=== PATIENT | female | born 1975 | race Caucasian/White ===

== ENCOUNTER 2017-10-11 21:06 | Emergency (ER) | payer BC ==
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
== END 2017-10-11 22:32 | disposition home or self-care (01) ==
LOC: JP.ED 21:06
DX: H10.11 Acute atopic conjunctivitis, right eye (principal); K21.9 Gastro-esophageal reflux disease without esophagitis; Z88.1 Allergy status to other antibiotic agents
CPT/HCPCS: 99283

== ENCOUNTER 2019-05-03 10:52 | Emergency (ER) | payer BC, OTHER ==
[2019-05-03] MEDS ORDERED: Ibuprofen 600 MG Tab PO ONE (11:28)
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
== END 2019-05-03 12:58 ==
LOC: JP.ED 10:52
DX: S00.03XA Contusion of scalp, initial encounter (principal); M54.6 Pain in thoracic spine; F32.9 Major depressive disorder, single episode, unspecified; F41.9 Anxiety disorder, unspecified; E03.9 Hypothyroidism, unspecified; Z88.6 Allergy status to analgesic agent; Z88.1 Allergy status to other antibiotic agents; Z88.5 Allergy status to narcotic agent; Z91.09 Other allergy status, other than to drugs and biological substances; Z87.891 Personal history of nicotine dependence; Z79.899 Other long term (current) drug therapy; V89.2XXA Person injured in unspecified motor-vehicle accident, traffic, initial encounter; Y92.410 Unspecified street and highway as the place of occurrence of the external cause
CPT/HCPCS: 71046; 72072; 99283; 99285; A9270

== ENCOUNTER 2019-05-11 10:37 | Emergency (ER) | payer OTHER ==
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
--- NOTE | 2019-05-11 12:36 | CRLCT ---
INDICATION: memory loss CT HEAD WITHOUT CONTRAST TECHNIQUE: Multiple axial CT images were performed through the head without intravenous contrast administration. COMPARISON: No previous studies are currently available for comparison. FINDINGS: No acute intracranial hemorrhage is identified. No extra-axial collections are evident and there is no mass effect or midline shift. Ventricles are normal in size and configuration. Brain parenchyma appears normal with unremarkable ayala-white differentiation. Osseous structures are within normal limits and no fractures are seen. Included portions of the paranasal sinuses and mastoid air cells are normally aerated. IMPRESSION: Normal non-contrast head CT. KM HOLLIDAY MD [employer] [employer] Dictated by: Amandeep Holliday MD @ 05/11/2019 12:34:13 (Electronically Signed)
== END 2019-05-11 14:12 | disposition home or self-care (01) ==
LOC: JP.ED 10:37
DX: S06.0X0A Concussion without loss of consciousness, initial encounter (principal); F32.9 Major depressive disorder, single episode, unspecified; Z88.1 Allergy status to other antibiotic agents; Z88.5 Allergy status to narcotic agent; Z88.8 Allergy status to other drugs, medicaments and biological substances; V49.9XXA Car occupant (driver) (passenger) injured in unspecified traffic accident, initial encounter; Y92.410 Unspecified street and highway as the place of occurrence of the external cause
CPT/HCPCS: 36415; 70450; 80053; 85025; 99284-25

== ENCOUNTER 2020-01-13 21:48 | Emergency (ER) | payer BC, OTHER ==
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
== END 2020-01-13 23:00 | disposition home or self-care (01) ==
LOC: JP.ED 21:48
DX: L25.9 Unspecified contact dermatitis, unspecified cause (principal); F41.9 Anxiety disorder, unspecified; E03.9 Hypothyroidism, unspecified; F32.9 Major depressive disorder, single episode, unspecified; Z88.6 Allergy status to analgesic agent; Z88.1 Allergy status to other antibiotic agents; Z88.5 Allergy status to narcotic agent; Z79.899 Other long term (current) drug therapy
CPT/HCPCS: 99283

== ENCOUNTER 2021-02-16 04:53 | Emergency (ER) | payer BC, OTHER ==
[2021-02-16] MEDS ORDERED: HYDROmorphone 0.5 MG/0.5 ML Syringe IVPUSH ONE ×2 (04:59→07:53)
[2021-02-16] MEDS ORDERED: Ketamine 500 MG/5 ML MDV ONE (04:59)
[2021-02-16] MEDS ORDERED: Ketamine 500 MG/5 ML MDV IV ONE (04:59)
[2021-02-16] MEDS ORDERED: HYDROmorphone 0.5 MG/0.5 ML Syringe ONE (05:00)
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
[2021-02-16] MEDS ORDERED: HYDROmorphone 1 MG/ML Syringe IVPUSH ONE (05:43)
[2021-02-16] MEDS ORDERED: LORazepam 2 MG/ML SDV IVPUSH ONE (05:43)
[2021-02-16] MEDS ORDERED: Propofol 200 MG/20 ML SDV ONE (06:16)
[2021-02-16] MEDS ORDERED: Lactated Ringers 1,000 ML IV ONE (07:01)
--- NOTE | 2021-02-16 09:30 | CR ---
Fluoro Up To 1Hr CLINICAL HISTORY: Reduction radial fracture FINDINGS: There are fluoroscopic spot images of both wrists performed during reduction of distal radial fractures Fluoroscopy time was 20 seconds
--- NOTE | 2021-02-16 09:32 | CR ---
Wrist Comp Min 3V Bi CLINICAL HISTORY: Fall FINDINGS: There is a comminuted impacted fracture of the distal left radius and a fracture of the ulnar styloid. There is widening of the scapholunate joint. There is ulnar abutment on the proximal carpal row. Impression: Fracture distal radius and ulna Wrist Comp 3 view right CLINICAL HISTORY: Fall FINDINGS: There is an impacted, comminuted distal right radial fracture and fracture of the ulnar styloid. There is dorsal angulation. There is ulnar abutment Impression: Fracture of the distal radius and ulnar styloid
== END 2021-02-16 08:18 ==
LOC: JP.ED 04:53
DX: S52.512A Displaced fracture of left radial styloid process, initial encounter for closed fracture (principal); S52.511A Displaced fracture of right radial styloid process, initial encounter for closed fracture; E03.9 Hypothyroidism, unspecified; Z79.899 Other long term (current) drug therapy; Z88.1 Allergy status to other antibiotic agents; Z88.5 Allergy status to narcotic agent; Z88.6 Allergy status to analgesic agent; W10.8XXA Fall (on) (from) other stairs and steps, initial encounter; Y92.002 Bathroom of unspecified non-institutional (private) residence as the place of occurrence of the external cause
CPT/HCPCS: 25605; 73110; 76000; 96374; 96375; 96376; 99285; J1170; J2060; J2704; J7120

== ENCOUNTER 2021-11-15 20:15 | Emergency (ER) | payer OTHER, BC | END 2021-11-15 22:05 | disposition home or self-care (01) | LOC: JP.ED 20:15 | DX: S60.211A Contusion of right wrist, initial encounter (principal); E03.9 Hypothyroidism, unspecified; Z79.899 Other long term (current) drug therapy; Z88.1 Allergy status to other antibiotic agents; Z88.5 Allergy status to narcotic agent; Z88.8 Allergy status to other drugs, medicaments and biological substances; W22.09XA Striking against other stationary object, initial encounter; Y99.0 Civilian activity done for income or pay | CPT/HCPCS: 73110-RT; 99281; 99283-25 ==

== ENCOUNTER 2023-09-04 15:47 | Emergency (ER) | payer BC ==
[2023-09-04 18:18] LABS: BASOPHILS ABSOLUTE AUTO 0.04 K/uL (0.00-0.10); BASOPHILS PERCENT AUTO 0.8 % (0.1-1.3); EOSINOPHILS ABSOLUTE AUTO 0.11 K/uL (0.00-0.40); EOSINOPHILS PERCENT AUTO 2.1 % (0.0-5.4); HEMATOCRIT 35.1 % (34.3-46.0); HEMOGLOBIN 11.9 g/dL (11.2-15.5); IMMATURE GRAN PERCENT AUTO 0.2 % (0.0-0.7); LYMPHOCYTES ABSOLUTE AUTO 1.92 K/uL (0.8-3.3); LYMPHOCYTES PERCENT AUTO 36.5 % (11.4-47.7); MEAN CORPUSCULAR HEMOGLOBIN 29.2 pg (31.6-35.5); MEAN CORPUSCULAR HGB CONC 33.9 g/dL (31.6-35.5); MONOCYTES ABSOLUTE AUTO 0.56 K/uL (0.20-0.90); MONOCYTES PERCENT AUTO 10.6 % (3.3-12.6); NEUTROPHILS ABSOLUTE AUTO 2.62 K/uL (1.0-7.6); NEUTROPHILS PERCENT AUTO 49.8 % (40.0-78.1); PLATELET COUNT,PLT 190 K/uL (130-375); RED BLOOD CELL COUNT 4.08 M/uL (3.77-5.24); WHITE BLOOD CELL COUNT,WBC 5.3 K/uL (3.2-11.0)
[2023-09-04 18:21] LABS: IMMATURE GRAN ABSOLUTE AUTO 0.01 K/uL (0.00-0.23)
[2023-09-04] MEDS: Sodium Chloride 0.9% 1,000 ML IV STA (18:24)
[2023-09-04] MEDS: Sodium Chloride 0.9% 10 ML Syringe FLUSH PRN (18:25)
[2023-09-04 18:42] LABS: A/G RATIO 1.2 (1.2-2.2); ALANINE AMINOTRANSFERASE,ALT 33 U/L (12-78); ALBUMIN 4.1 g/dL (3.4-5.0); ALKALINE PHOSPHATASE 72 U/L (46-116); ANION GAP 11.6 mmol/L (5.0-14.0); ASPARTATE AMNIOTRANSFERASE,AST 26 U/L (15-37); BILIRUBIN TOTAL 0.4 mg/dL (0.2-1.0); BLOOD UREA NITROGEN,BUN 18 mg/dL (7-18); CARBON DIOXIDE,CO2 28 mmol/L (21-32); CHLORIDE,CL 103 mmol/L (100-108); EST CRCL DRUG DOSING (CG) 58.76 mL/min; ESTIMATED GFR 69 mL/min (>60); GLUCOSE RANDOM 78 mg/dL (74-106); POTASSIUM,K 3.6 mmol/L (3.6-5.2); PROTEIN TOTAL,TP 7.5 g/dL (6.4-8.2); SODIUM,NA 143 mmol/L (140-148)
[2023-09-04] MEDS: Sodium Chloride 0.9% 50 ML IV SCH (18:56)
[2023-09-04] MEDS: Iopamidol 612 MG/ML 100 ML Bottle IV SCH (18:56)
[2023-09-04 19:44] LABS: APPEARANCE,URINE SLIGHTLY CLOUDY (CLEAR); BILIRUBIN,URINE NEGATIVE (NEGATIVE); COLOR,URINE YELLOW (YELLOW); GLUCOSE,URINE NEGATIVE (NEGATIVE); KETONES,URINE NEGATIVE (NEGATIVE); LEUKOCYTE ESTERASE,URINE NEGATIVE (NEGATIVE); NITRITE,URINE NEGATIVE (NEGATIVE); OCCULT BLOOD,URINE NEGATIVE (NEGATIVE); PH,URINE 8.5 (5.0-8.0); PROTEIN,URINE NEGATIVE (NEGATIVE); UROBILINOGEN,URINE 0.2 EU/dL (0.2-1.0)
[2023-09-04 19:46] LABS: AMORPHOUS SEDIMENT,URINE MODERATE; BACTERIA,URINE FEW; EPITHELIAL CELLS,URINE RARE; MUCUS,URINE RARE; RBC,URINE 0-5 (0-5); WBC,URINE 0-5 (0-5)
== END 2023-09-04 21:43 | disposition home or self-care (01) ==
LOC: JP.ED 15:47
DX: K59.04 Chronic idiopathic constipation (principal); K21.9 Gastro-esophageal reflux disease without esophagitis; E03.9 Hypothyroidism, unspecified; Z79.899 Other long term (current) drug therapy; Z88.6 Allergy status to analgesic agent; Z88.1 Allergy status to other antibiotic agents; Z88.8 Allergy status to other drugs, medicaments and biological substances
CPT/HCPCS: 36415; 74177; 80053; 81001; 83605; 83690; 84703; 85025; 99284; J3490; J7030; Q9967

== ENCOUNTER 2025-06-08 17:47 | Emergency (ER) | payer BC ==
[2025-06-08 21:34] LABS: BASOPHILS ABSOLUTE AUTO 0.02 K/uL (0.00-0.10); BASOPHILS PERCENT AUTO 0.3 % (0.1-1.3); EOSINOPHILS ABSOLUTE AUTO 0.00 K/uL (0.00-0.40); EOSINOPHILS PERCENT AUTO 0.0 % (0.0-5.4); IMMATURE GRAN ABSOLUTE AUTO 0.01 K/uL (0.00-0.23); IMMATURE GRAN PERCENT AUTO 0.2 % (0.0-0.7); LYMPHOCYTES ABSOLUTE AUTO 1.81 K/uL (0.8-3.3); LYMPHOCYTES PERCENT AUTO 31.5 % (11.4-47.7); MONOCYTES ABSOLUTE AUTO 0.47 K/uL (0.20-0.90); MONOCYTES PERCENT AUTO 8.2 % (3.3-12.6); NEUTROPHILS ABSOLUTE AUTO 3.44 K/uL (1.0-7.6); NEUTROPHILS PERCENT AUTO 59.8 % (40.0-78.1); PLATELET COUNT,PLT 219 K/uL (130-375); RED BLOOD CELL COUNT 4.08 M/uL (3.77-5.24); WHITE BLOOD CELL COUNT,WBC 5.8 K/uL (3.2-11.0)
[2025-06-08 21:58] LABS: A/G RATIO 1.2 (1.2-2.2); ALANINE AMINOTRANSFERASE,ALT 36 U/L (12-78); ASPARTATE AMNIOTRANSFERASE,AST 22 U/L (15-37); BILIRUBIN TOTAL 0.4 mg/dL (0.2-1.0); BLOOD UREA NITROGEN,BUN 23 mg/dL (7-18); CARBON DIOXIDE,CO2 28 mmol/L (21-32); CHLORIDE,CL 105 mmol/L (100-108); CREATININE 0.9 mg/dL (0.6-1.0); EST CRCL DRUG DOSING (CG) 64.58 mL/min; ESTIMATED GFR 78 mL/min (>60); GLUCOSE RANDOM 94 mg/dL (74-106); POTASSIUM,K 3.8 mmol/L (3.6-5.2); PROTEIN TOTAL,TP 7.2 g/dL (6.4-8.2); SODIUM,NA 142 mmol/L (140-148)
[2025-06-08 22:22] LABS: APPEARANCE,URINE CLEAR (CLEAR); GLUCOSE,URINE NEGATIVE (NEGATIVE); OCCULT BLOOD,URINE TRACE-INTACT (NEGATIVE)
[2025-06-08 22:30] LABS: SQUAMOUS EPITHELIAL CELLS,UR FEW /HPF; UROTHELIAL CELLS,URINE NOT SEEN /HPF
== END 2025-06-08 23:05 | disposition home or self-care (01) ==
LOC: JP.ED 17:47
DX: R20.2 Paresthesia of skin (principal); R20.0 Anesthesia of skin; K21.9 Gastro-esophageal reflux disease without esophagitis; E03.9 Hypothyroidism, unspecified; Z86.16 Personal history of COVID-19; Z79.899 Other long term (current) drug therapy; Z79.890 Hormone replacement therapy; Z88.6 Allergy status to analgesic agent; Z88.1 Allergy status to other antibiotic agents; Z88.8 Allergy status to other drugs, medicaments and biological substances
CPT/HCPCS: 36415; 70450; 80053; 81001; 83735; 84443; 85025; 99283; 99284